=== PATIENT | male | born 1995 | race Two or more races ===

== ENCOUNTER 2020-03-11 21:19 | Emergency (ER) | payer BC ==
--- NOTE | 2020-03-11 22:36 | EKG REPORT ---
SEVERITY:- ABNORMAL ECG - SINUS TACHYCARDIA PROLONGED QT INTERVAL : Confirmed by: Rabia Priest 11-Mar-2020 22:35:22
[2020-03-11] MEDS ORDERED: ONDANSETRON 4 MG TAB.RAPDIS PO ONE (22:43)
[2020-03-11] MEDS ORDERED: ONDANSETRON HCL INJ/PF 4 MG/2 ML SDV IV ONE (22:44)
[2020-03-11] MEDS ORDERED: NORMAL SALINE 1000 ML 1,000 ML IV ONE (22:45)
--- NOTE | 2020-03-11 22:48 | ER Document Report ---
ED Medical Screen (RME) - General Chief Complaint: Chest Pain Stated Complaint: CHEST PAIN,BREATHING DIFFICULTY, ARMS LOCKED UP Time Seen by Provider: 03/11/20 22:35 - HPI Notes: Patient is a 24 y/o male with no medical problems who presents with vomiting that began two hours prior to arrival. Patient states he has been continuously vomiting. He reports abdominal pain but denies diarrhea. He also reports shortness of breath for the past two days but denies cough, nasal congestion and fever. He denies any recent sick contacts or potential COVID exposures. Physical Exam - Vital signs Vitals: Temp Pulse Resp BP Pulse Ox 97.4 F 78 18 135/79 H 96 03/11/20 21:55 03/11/20 21:55 03/11/20 21:55 03/11/20 21:55 03/11/20 21:55 Interpretation: Normal. No: Febrile - General In distress: Moderate - actively vomiting - Respiratory Respiratory status: No respiratory distress Course - Re-evaluation Re-evalutation: I have greeted and performed a rapid initial assessment of this patient. A comprehensive ED assessment and evaluation of the patient, analysis of test results and completion of medical decision making process will be conducted by an additional ED providers. The patient was evaluated during the global COVID-19 pandemic and that diagnosis was suspected/considered upon their initial presentation. Their evaluation, treatment and testing was consistent with current guidelines for patients who present with complaints or symptoms that may be related to COVID-19. - Vital Signs Vital signs: Temp Pulse Resp BP Pulse Ox 97.4 F 78 18 135/79 H 96 03/11/20 21:55 03/11/20 21:55 03/11/20 21:55 03/11/20 21:55 03/11/20 21:55
--- NOTE | 2020-03-11 23:35 | ER Document Report ---
ED GI/ - General Chief Complaint: Nausea/Vomiting Stated Complaint: CHEST PAIN,BREATHING DIFFICULTY, ARMS LOCKED UP Time Seen by Provider: 03/11/20 22:35 Mode of Arrival: Wheelchair Information source: Patient Notes: 24-year-old male here visiting from [place] with no previous medical problems presents to the emergency room with sudden onset of vomiting that started about an hour after eating dinner. States he became nauseous and induced vomiting, then he states he started complaining of some sharp chest pain in the midsternal region as well as the right upper quadrant and midepigastric region. States he continued to vomit multiple times was unable to tolerate anything p.o. He de nies any fevers, no abdominal pain. No diarrhea. Denies any bad food. No recent antibiotics. No COVID-19 exposure. No medications for symptoms. TRAVEL OUTSIDE OF THE [place] IN LAST 30 DAYS: No Past Medical History - General Information source: Patient - Social History Smoking Status: Never Smoker Frequency of alcohol use: None Drug Abuse: None Family History: Reviewed & Not Pertinent Review of Systems - Review of Systems Constitutional: No symptoms reported EENT: No symptoms reported Cardiovascular: Chest pain Respiratory: No symptoms reported Gastrointestinal: Nausea, Vomiting. denies: Abdominal pain, Diarrhea, Const ipation Genitourinary: No symptoms reported Musculoskeletal: No symptoms reported Skin: No symptoms reported Neurological/Psychological: No symptoms reported -: Yes All other systems reviewed and negative Physical Exam - Vital signs Vitals: Temp Pulse Resp BP Pulse Ox 97.4 F 78 18 135/79 H 96 03/11/20 21:55 03/11/20 21:55 03/11/20 21:55 03/11/20 21:55 03/11/20 21:55 - General General appearance: Appears well, Alert In distress: Mild - Respiratory Respiratory status: No respiratory distress Chest status: Nontender Breath sounds: Normal Chest palpation: Normal - Cardiovascular Rhythm: Regular Heart sounds: Normal auscultation Murmur: No - Abdominal Inspection: Normal Distension: No distension Bowel sounds: Normal Tenderness: Tender - Tenderness on palpation to the right upper quadrant and mid epigastric region.. No: McBurney's point, Carroll's sign, Guarding - Back Back: Normal, Nontender. No: CVA tenderness - Neurological Neuro grossly intact: Yes Cognition: Normal Orientation: AAOx4 [place] Coma Scale Eye Opening: Spontaneous [place] Coma Scale Verbal: Oriented [place] Coma Scale Motor: Obeys Commands [place] Coma Scale Total: 15 Speech: Normal Motor strength normal: LUE, RUE, LLE, RLE Sensory: Normal - Skin Skin Temperature: Warm Skin Moisture: Dry Skin Color: Normal Course - Re-evaluation Re-evalutation: 03/12/20 01:09 HEART Score: History 0 ECG 1 Age 0 Risk Factors 0 Troponin 0 Total: 1 Chest pain in a patient without evidence of cardiac or other serious etiology on workup today. I discussed with patient that, based on their age, risk factors and emergency department testing today, the likelihood that their symptoms are related to a heart attack is very low (estimated risk of heart attack or over the next 30 days of less than 1%). The patient demonstrates decision making capacity and has verbalized an understanding of these risks to me. Based on this, the patient has chosen to follow-up as an outpatient. Usual chest pain return precautions reviewed. The patient states understanding and agreement with this plan. 03/12/20 01:10 Reviewed lab and x-ray results with patient. Mild right upper quadrant pain negative Carroll sign. Reviewed elevated LFTs with patient. Aware of need for abdominal ultrasound. Agree to additional testing. 03/12/20 02:22 Patient remains comfortable no acute distress. Reviewed ultrasound results with patient. Aware of need for CAT scan to further evaluate liver. Patient is agreeable to additional diagnostic testing. 03/12/20 03:29 Patient is resting comfortably denies pain. Pain-free on exam. No concerns for acute coronary syndrome. CT abdomen pelvis and right upper quadrant ultrasound are stable with no concerns for acute liver disease. All test results were reviewed with the patient. He was counseled on importance of outpatient follow- up with his primary care physician on returning home to [place] for his abnormal labs. Clear liquid diet for the next 24 hours. Zofran as needed for nausea. Patient was given strict return to the emergency room guidelines. Return for any new or worsening symptoms. All questions were answered. Patient verbalized understanding and agrees with plan of care. - Vital Signs Vital signs: Temp Pulse Resp BP Pulse Ox 98.3 F 78 18 146/89 H 98 03/12/20 03:48 03/11/20 21:55 03/12/20 03:48 03/12/20 03:48 03/12/20 03:48 - Laboratory Results Result Diagrams: 03/11/20 23:23 03/11/20 23:23 Laboratory Results Interpreted: 03/11/20 03/11/20 03/11/20 23:23 23:23 23:23 WBC 12.8 H RBC 5.71 H Hgb 17.3 H Lymph % (Auto) 10.5 L Absolute Neuts (auto) 10.6 H Seg Neutrophils % 82.8 H Carbon Dioxide 34 H Calcium 10.6 H AST 800 H ALT 251 H Albumin 5.1 H Urine Protein 100 H Urine Ketones 80 H Urine Blood MODERATE H Critical Laboratory Results Reviewed: Yes - Elevated liver enzymes Attending or Supervising Physician who Reviewed Labs: ELIZABETH JONES IV - ct abdomen and pelvis iv contrast ruq u/s - Radiology Results Critical Radiology Results Reviewed: No Critical Results - EKG Interpretation by Me Rate: Tachycardia Additional EKG results interpreted by me: 03/11/20 23:36 EKG was interpreted by ER physician Dr. Haynes No acute STEMI Junctional tachycardic Prolonged QT interval Rate [address] wave abnormalities Discharge - Discharge Clinical Impression: Elevated liver enzymes Nausea and vomiting Qualifiers: Vomiting type: unspecified Vomiting Intractability: non-intractable Qualified Code(s): R11.2 - Nausea with vomiting, unspecified Chest pain Qualifiers: Chest pain type: unspecified Qualified Code(s): R07.9 - Chest pain, unspecified Abdominal pain Qualifiers: Abdominal location: right upper quadrant Qualified Code(s): R10.11 - Right upper quadrant pain Condition: Stable Disposition: HOME, SELF-CARE Instructions: Abdominal Pain ([facility]), Chest Wall Pain ([facility]), Clear Liquid Diet ([facility]), Liver Function Abnormality ([facility]), Vomiting ([facility]) Additional Instructions: Clear liquid diet for the next 24 hours. Zofran as needed for nausea. Follow- up with your primary care physician on returning home to [place] for your elevated liver enzymes. Return to the emergency room for any new or worsening symptoms.
--- NOTE | 2020-03-11 23:39 | RADIOLOGY REPORT (SQ) ---
EXAM DESCRIPTION: XR CHEST 1 VIEW COMPLETED DATE/TME: 03/11/2020 23:15 CLINICAL HISTORY: 24 years, Male, shortness of breath COMPARISON: None. NUMBER OF VIEWS: 1 TECHNIQUE: Frontal view chest LIMITATIONS: None. FINDINGS: Heart size is normal. Lungs are clear. No pneumothorax IMPRESSION: Negative chest copyright 2011 [employer]- All Rights Reserved
[2020-03-11 23:45] LABS: ABSOLUTE LYMPHOCYTES (AUTO) 1.3 10^3/uL (0.5-4.7); ABSOLUTE MONOCYTES (AUTO) 0.8 10^3/uL (0.1-1.4); ABSOLUTE NEUT (AUTO) 10.6 10^3/uL (1.7-8.2); BASOPHILS % (AUTO) 0.4 % (0-2); HEMOGLOBIN 17.3 g/dL (13.5-17.0); LYMPHOCYTES % (AUTO) 10.5 % (13-45); MEAN CORPUSCULAR HEMOGLOBIN 30.2 pg (27.0-33.4); MEAN CORPUSCULAR HGB CONC 33.9 g/dL (32.0-36.0); MEAN CORPUSCULAR VOLUME 89 fl (80-97); MONOCYTES % (AUTO) 6.3 % (3-13); PLATELET COUNT 257 10^3/uL (150-450); RED BLOOD COUNT 5.71 10^6/uL (4.35-5.55); RED CELL DISTRIBUTION WIDTH 13.9 % (11.5-14.0); SEGMENTED NEUTROPHILS % (AUTO) 82.8 % (42-78); TOTAL CELLS COUNTED % (AUTO) 100 %; WHITE BLOOD COUNT 12.8 10^3/uL (4.0-10.5)
[2020-03-11 23:46] LABS: APPEARANCE,URINE CLEAR; BILIRUBIN,URINE NEGATIVE (NEGATIVE); COLOR,URINE YELLOW; GLUCOSE, URINE NEGATIVE (NEGATIVE); KETONES,URINE 80 mg/dL (NEGATIVE); LEUKOCYTE ESTERASE,URINE NEGATIVE (NEGATIVE); NITRITE,URINE NEGATIVE (NEGATIVE); PROTEIN,URINE 100 mg/dL (NEGATIVE); URINE SPECIFIC GRAVITY 1.029; UROBILINOGEN,URINE NEGATIVE mg/dL (<2.0)
[2020-03-12] LABS: ALBUMIN 5.1 g/dL (3.5-5.0); ALKALINE PHOSPHATASE 66 U/L (38-126); ANION GAP 11 (5-19); BILIRUBIN,DIRECT 0.3 mg/dL (0.0-0.4); BILIRUBIN,TOTAL 0.7 mg/dL (0.2-1.3); BLOOD UREA NITROGEN 14 mg/dL (7-20); CALCIUM 10.6 mg/dL (8.4-10.2); CARBON DIOXIDE 34 mmol/L (22-30); CHLORIDE 99 mmol/L (98-107); GLUCOSE 90 mg/dL (75-110); POTASSIUM 4.1 mmol/L (3.6-5.0)
[2020-03-12 00:11] LABS: ASPARTATE AMINO TRANSFERASE 800 U/L (17-59)
--- NOTE | 2020-03-12 01:57 | RADIOLOGY REPORT (SQ) ---
EXAM DESCRIPTION: U/S ABDOMEN LTD W/DOPPLER CLINICAL HISTORY: 24 years Male; ruq pain TECHNIQUE: Abdominal ultrasound was performed. COMPARISON: None. FINDINGS: Pancreas: The body the pancreas is unremarkable. The head and tail are not well seen. Liver: Liver measures 13.2 cm. There may be intrahepatic biliary dilatation. The ducts within the liver are prominent.. Portal vein is patent with hepatopedal flow. Gallbladder: Gallbladder is unremarkable. The wall measures 1.9 mm. No stones. No sonographic Carroll's. Common bile duct: 2.6 mm. Right kidney: The kidney measures 12.5 x 5.1 x 4.7 cm. Echogenicity is isoechoic or slightly hyperechoic with respect to the liver.. No hydronephrosis. Aorta:Visualized portions are within normal limits. IVC: Visualized portions are within normal limits. Ascites: No free fluid. IMPRESSION: 1. Possible dilatation of the intrahepatic biliary tree. 2. No gallstones. No extrahepatic biliary dilatation.
[2020-03-12] MEDS ORDERED: MORPHINE SULFATE 10 MG/ML INJ IV ONE (02:25)
--- NOTE | 2020-03-12 03:18 | RADIOLOGY REPORT (SQ) ---
CT ABDOMEN AND PELVIS WITH INTRAVENOUS CONTRAST: 03/12/2020 2:14 AM POISON INFORMATION SPECIALIST HISTORY: 24-year old with abdominal pain. COMPARISON: None available TECHNIQUE: Axial contiguous images were obtained from the lung bases to the proximal femurs with intravenous intravenous contrast administered. Sagittal and coronal reconstructions were also obtained and reviewed. This exam was performed according to our departmental dose-optimization program, which includes automated exposure control, adjustment of the mA and/or KV according to the patient's size and/or use of iterative reconstruction technique. FINDINGS: No focal consolidative airspace opacities are seen. No discrete pleural effusions are seen. The visualized hepatic parenchyma appears diffusely hypodense, suggesting hepatic steatosis. The gallbladder demonstrates no evidence of calcified gallstones. The spleen is normal in size. The pancreas is unremarkable. The bilateral adrenal glands are unremarkable. Both kidneys demonstrate no evidence of hydronephrosis. No renal or ureteral calculi are seen. There is normal contrast excretion from both kidneys and into the urinary bladder. The urinary bladder is mildly distended. The stomach is not well distended. The small bowel loops appear unremarkable. No pericolonic inflammatory stranding is seen. The appendix is unremarkable. There is no evidence of pneumoperitoneum or free fluid. The IVC is unremarkable. The visualized portions of the abdominal aorta are within normal limits of size. No significantly enlarged lymph nodes are seen in the abdomen or pelvis. Review of the bone show no evidence of any suspicious lytic or blastic lesions. IMPRESSION: No acute process is seen within the abdomen or pelvis. Hepatic steatosis
[2020-03-12] MEDS ORDERED: ONDANSETRON ODT 4 MG TAB (6 TAB/ER DISP) PO PRN (03:30)
[2020-03-12 03:53] VITALS: BP 146/89
== END 2020-03-12 03:58 | disposition home or self-care (01) ==
LOC: ER 21:19
DX: R11.2 Nausea with vomiting, unspecified (principal); R07.9 Chest pain, unspecified; R10.11 Right upper quadrant pain; R10.13 Epigastric pain; R10.811 Right upper quadrant abdominal tenderness; R10.816 Epigastric abdominal tenderness; K76.0 Fatty (change of) liver, not elsewhere classified; R74.8 Abnormal levels of other serum enzymes; Z20.822 Contact with and (suspected) exposure to COVID-19
CPT/HCPCS: 93005; 99285; 96361 ×2; 96374; 96375; 36415; 83690; 85025; 80053; 81001; 84484; 71045; 76705; 93976; 74177; 93010; U0003; J2270; J2405; J7030; C9803; 87635